=== PATIENT | female | born 1950 | race Caucasian/White ===

== ENCOUNTER 2019-08-06 06:41 | Inpatient (IN) | payer MEDICARE, OTHER ==
[2019-08-03 18:07] LABS: BASOPHILS # (AUTO) 0.1 (0.0-0.1); BASOPHILS % 0.5 % (0.0-1.0); EOSINOPHILS # (AUTO) 0.3 (0.0-0.4); EOSINOPHILS % 2.6 % (0.0-6.0); HEMATOCRIT 38.3 % (34.2-44.1); HEMOGLOBIN 12.6 g/dL (12.0-16.0); LYMPHOCYTES # (AUTO) 2.3 (1.0-3.2); LYMPHOCYTES % 22.4 % (18.0-39.1); MEAN CORPUSCULAR HEMOGLOBIN 27.8 pg (28-32); MEAN CORPUSCULAR HGB CONC 32.9 g/dL (31-35); MEAN CORPUSCULAR VOLUME 84.5 fL (81-99); MONOCYTES # (AUTO) 0.8 (0.2-0.8); MONOCYTES % 7.9 % (4.4-11.3); NEUTROPHILS # (AUTO) 6.7 (2.1-6.9); NEUTROPHILS % 65.7 % (38.7-80.0); PLATELET COUNT 257 x10e3/uL (140-360); RED BLOOD COUNT 4.53 x10e6/uL (3.6-5.1); RED CELL DISTRIBUTION WIDTH 13.9 % (11.7-14.4)
--- NOTE | 2019-08-03 18:40 | Diagnostic Imaging Report ---
EXAMINATION: PA and lateral views of the chest. COMPARISON: None CLINICAL HISTORY: Preop DISCUSSION: Lines/tubes: None. Lungs: The lungs are well inflated and clear. There is no evidence of pneumonia or pulmonary edema. Pleura: There is no pleural effusion or pneumothorax. Heart and mediastinum: Cardiomediastinal silhouette is unremarkable. Pulmonary vasculature is normal. Bones and soft tissues: No acute bony abnormalities. Degenerative changes in the thoracic spine IMPRESSION: No acute cardiopulmonary abnormalities. Signed by: Dr. Fawad Greene M.D. on 08/03/2019 6:37 PM
[~2019-08-06] VITALS: Ht 167.6 cm; Wt 97.5 kg
[~2019-08-06 06:41] MED LIST: ALLOPURINOL PO; ESCITALOPRAM OX20 MG PO; INDOMETHACIN50 MG PO; TIZANIDINE HCL4 MG PO; ULTRAM50 MG PO; ZESTRIL20 MG PO
[2019-08-06] MEDS ORDERED: SUGAMMADEX SODIUM 200 MG/2 ML VIAL IV ONE (07:07)
[2019-08-06] MEDS ORDERED: LIDOCAINE HCL (LTA) 4 ML SOLN ONE (07:07)
[2019-08-06] MEDS ORDERED: SCOPOLAMINE 1.5 MG PATCH ONE (07:08)
[2019-08-06] MEDS ORDERED: CEFAZOLIN SOD 1 GM/NS 50ML 100 ML IV ONE (07:22)
[2019-08-06] MEDS ORDERED: ONDANSETRON HCL INJ 2MG/ML 2ML 2 MG/ML VIAL IV PRN (07:45)
[2019-08-06] MEDS ORDERED: BUPIVACAINE 0.25% 30ML SDV INJ ONE (07:56)
[2019-08-06] MEDS ORDERED: ACETAMINOPHEN 1000 MG/100 ML 100 ML IV ONE (09:04)
[2019-08-06] MEDS ORDERED: DEXMEDETOMIDINE HCL 2 ML ONE (09:23)
--- NOTE | 2019-08-06 09:57 | Operative Report ---
DATE OF PROCEDURE: 08/06/2019 SURGEON: Spike Mike MD PREOPERATIVE DIAGNOSES: 1. Morbid obesity, BMI 35. 2. Hypertension. POSTOPERATIVE DIAGNOSES: 1. Morbid obesity, BMI 35. 2. Hypertension. PREOPERATIVE INDICATION: Treat disease, prevent complications related to comorbid conditions of obesity. PROCEDURE: Laparoscopic vertical sleeve gastrectomy. ANESTHESIA: General. PROTECTIVE CLOTHING ISSUER: Moe Salmon, student assistant (needed due to complexity of case). FLUIDS: 500 mL of crystalloid. ESTIMATED BLOOD LOSS: 20 mL. DRAINS: None. COMPLICATIONS: None. SPECIMENS: Partial stomach. GRAFTS: None. FINDINGS: 1. Normal upper GI anatomy. 2. Negative intraoperative EGD leak test. PROCEDURE IN DETAIL: The patient was brought to the operating room and was intubated under general endotracheal anesthesia. She was sterilely prepped and draped in the usual fashion. A preprocedure pause was performed identifying the patient, use of perioperative antibiotics, intended procedure, and staff surgeon. A left subcostal incision was made and a Veress needle was inserted. Trocar was placed through direct visualization and it was noted that there was into the lumen of the stomach. I then placed an additional 5 mm trocar in the right upper quadrant and was able to pull the trocar out of the stomach. The trocar had pierced the greater curvature of stomach at the site, where the specimen was to be removed. We then mobilized the greater curvature of stomach from about 3 cm proximal to the pyloric valve to the left jorge of the diaphragm using the [place] LigaSure device. I then placed in a 32-Serbian bougie, which was used for suctioning as well along the lesser curvature of the stomach. The greater curvature of the stomach was resected with 5 firings of a 60 mm purple load TRS reinforced stapling device. Once that was complete, an intraoperative leak test was performed, no leaks were identified. The suctioning bougie was then removed. The specimen was removed through the right periumbilical port site. The port site was closed with 0 Vicryl suture using a Gurjit Dunaway technique in a [id number] fashion. We then verified hemostasis, removed the liver retractor and desufflated the abdomen. Incision sites were closed with 4-0 Monocryl suture in a subcuticular fashion. Dermabond dressing was applied. A 0.25% bupivacaine was used both at the preperitoneal incision sites. The patient tolerated the procedure well. Type of wound is type 2, clean, contaminated. MD ARASH Ortiz/MODL /[id number]
--- NOTE | 2019-08-06 10:26 | NUR ---
RECEIVED PATIENT FROM RECOVERY. PATIENT A/O X3, EVEN RESPIRATIONS ON RA. LUNG SOUNDS CLEAR TO AUSCULTATION. 5 TROCAR SITES TO ABDOMEN. LEFT HAND 20 GAUGE IV LR @ 125 CC/HR. ANGELIKA ARMENTA AND SCD'S BILATERALLY. ORIENTED PATIENT TO ROOM AND CALL LIGHT. BED LOW, WHEELS LOCKED, SIDE RAILS X2. CALL LIGHT IN REACH WILL CONTINUE TO MONITOR PATIENT.
[2019-08-06] MEDS ORDERED: SCOPOLAMINE 1.5 MG PATCH TOP SCH (11:00)
[2019-08-06] MEDS: LACTATED RINGER'S 1,000 ML IV SCH ×2 (11:05→23:38)
--- NOTE | 2019-08-06 11:05 | NUR ---
PATIENT COMPLAINT OF CHEST PAIN 05/31. STAT EKG ORDER PLACED PER PROTOCOL. EKG SHOWED NORMAL SINUS RHYTHM.
[2019-08-06] MEDS: MORPHINE SULFATE 2 MG/ML SYR 1ML IV PRN ×4 (11:07→23:44)
--- NOTE | 2019-08-06 11:07 | NUR ---
MORPHINE GIVEN FOR PAIN AT THIS TIME.
--- NOTE | 2019-08-06 11:08 | History and Physical ---
CHIEF COMPLAINT: "I had weight loss surgery." HISTORY OF PRESENT ILLNESS: This is a 69-year-old white woman, who was initially admitted to [facility] [place] with a diagnosis of obesity, BMI 35, complicating underlying hypertension. Today, patient underwent successful laparoscopic sleeve gastrectomy. This performed by Dr. Spike Mike. After the surgery, the patient underwent an intraoperative EGD leak test, which was negative. This EGD did reveal normal upper GI anatomy. The patient tolerated the surgery quite well. At this time, she has some pain. Denies any nausea or vomiting. The Nielsen catheter has been removed. The patient states this is a first bariatric surgery. REVIEW OF SYSTEMS: GENERAL: Weight is stable. No fever or chills. HEENT: No headaches. No visual changes. CARDIOVASCULAR/RESPIRATORY: No chest pain. No short of breath or cough. No history of chronic bronchitis or asthma. GASTROINTESTINAL: Complains of abdominal pain, 8/10, but she states it is tolerable. No nausea or vomiting. GENITOURINARY: Nielsen catheter was removed. Denies any UTI or overactive bladder symptoms. NEUROMUSCULAR: No limb weakness or numbness. PAST MEDICAL HISTORY: 1. Hypertension. 2. Obesity, BMI 35. 3. Depression. 4. Hyperuricemia. 5. History of breast cancer in 2012, which resulted in right lumpectomy and radiation therapy afterwards. FAMILY HISTORY: Noncontributory. SOCIAL HISTORY: This woman is , lives with her . She is employed as a delivery dispatcher. No history of tobacco or alcohol use. ALLERGIES: NO KNOWN DRUG ALLERGIES. MEDICATIONS: 1. Escitalopram 20 mg every night. 2. Indomethacin 50 mg every night. 3. Lisinopril 20 mg every night. 4. Tizanidine 4 mg every night. 5. Tramadol 50 mg every night as needed for pain. 6. Allopurinol 300 mg daily. PAST SURGICAL HISTORY: 1. Laparoscopic sleeve gastrectomy today. 2. Laparoscopic cholecystectomy. 3. Total abdominal hysterectomy with bilateral salpingo-oophorectomy. 4. section twice. 5. Right lumpectomy in 2011 due to breast cancer. PHYSICAL EXAMINATION: GENERAL: She is awake, alert, and fluent, in no distress. Very pleasant and calm. VITAL SIGNS: Blood pressure 90/50, heart rate is 60, respiratory rate 16, temperature 97.7, and oxygen saturation 99% on room air. BMI 35. INTEGUMENT: Skin is warm and dry. No pallor, diaphoresis. HEENT: Anicteric sclerae. Moist mucous membranes. NECK: Supple. CARDIOVASCULAR: Regular rate and rhythm. LUNGS: Clear to auscultation bilaterally. ABDOMEN: Soft. The laparoscopic incisions are clean, dry, and intact. No bowel sounds are auscultated. EXTREMITIES: No edema or deformity. She is wearing sequential compression devices at this time. NEUROLOGIC: Intact. DIAGNOSES: 1. Obesity, BMI 35, complicating underlying hypertension. 2. Hypertensive heart disease. 3. Status post laparoscopic sleeve gastrectomy. 4. History of breast cancer in 2012 in remission. PLAN: 1. Encourage incentive spirometer use every hour to help prevent atelectasis. 2. Mobilize patient. 3. Followup complete blood count and comprehensive metabolic profile for pain control. 4. We will start enoxaparin to prevent deep venous thrombosis and pulmonary thromboembolism. 5. We will hold blood pressure medications today since she is hypotensive and is taking nothing by mouth. I would like to thank, Dr. Mike for allowing me to participate in the care of this patient. MD ORION Boone/JOAQUIN /[id number] MTDD
[2019-08-06 11:16] VITALS: BP 137/94
[2019-08-06 11:27] VITALS: BP 137/94
[2019-08-06 11:46] VITALS: BP 137/94
--- NOTE | 2019-08-06 12:22 | NUR ---
PATIENT HAS VOIDED SINCE SURGERY.
[2019-08-06] MEDS ORDERED: FAMOTIDINE 20 MG/2 ML VIAL IV SCH ×2 (13:30→13:45)
[2019-08-06] MEDS ORDERED: FUROSEMIDE INJ 10 MG/ML 2 ML VIAL IV NR (14:00)
[2019-08-06] MEDS ORDERED: FAMOTIDINE INJ 40 MG in SODIUM CHLORIDE 0.9% 100 ML IV SCH (15:00)
[2019-08-06 15:39] VITALS: BP 168/84
--- NOTE | 2019-08-06 17:01 | NUR ---
RD received consult for bariatric diet education. Pt had a laparoscopic sleeve gastrectomy today. Pt was not interested in verbal education at time of visit and stated she will read handouts at a later time. Encouraged pt to contact RD if she has questions. Signed: Bertha Fernandez RD, DANIELA
--- NOTE | 2019-08-06 17:14 | NUR ---
PATIENT AMBULATING IN HALLWAY, STEADY GAIT. NO SIGNS OF DISTRESS.
--- NOTE | 2019-08-06 19:10 | NUR ---
Patient visited in room during nursing rounds. Patient alert and oriented x3. Some intermittent chest pain being felt by patient but medicated accordingly. Pt ambulatory prn. S/P Bariatric surgery with 5 trocar sites on abdomen (being covered with dermabond). NPO except ice chips at this time. On IVF (LR at 125ml/hr). Call dawn within reach.
[2019-08-06 20:00] VITALS: BP 155/84
[2019-08-06] MEDS: ENOXAPARIN SOD INJ 40 MG/0.4 ML SYR SC SCH (20:39)
[2019-08-07] VITALS: BP 143/82
[2019-08-07 05:58] VITALS: BP 142/76
[2019-08-07] MEDS: MORPHINE SULFATE 2 MG/ML SYR 1ML IV PRN (06:16)
[2019-08-07] MEDS: LACTATED RINGER'S 1,000 ML IV SCH ×2 (06:16→10:50)
[2019-08-07 06:22] LABS: BASOPHILS % 0.1 % (0.0-1.0); HEMATOCRIT 35.2 % (34.2-44.1); HEMOGLOBIN 11.6 g/dL (12.0-16.0); LYMPHOCYTES # (AUTO) 1.8 (1.0-3.2); LYMPHOCYTES % 12.7 % (18.0-39.1); MEAN CORPUSCULAR VOLUME 84.8 fL (81-99); MONOCYTES # (AUTO) 1.1 (0.2-0.8); MONOCYTES % 7.8 % (4.4-11.3); NEUTROPHILS # (AUTO) 10.9 (2.1-6.9); NEUTROPHILS % 78.6 % (38.7-80.0); PLATELET COUNT 220 x10e3/uL (140-360); RED BLOOD COUNT 4.15 x10e6/uL (3.6-5.1); RED CELL DISTRIBUTION WIDTH 13.8 % (11.7-14.4)
[2019-08-07 06:51] LABS: ALBUMIN 3.3 g/dL (3.5-5.0); ALBUMIN/GLOBULIN RATIO 1.1 (0.8-2.0); ANION GAP 14.5 mmol/L (8-16); CALCIUM 9.1 mg/dL (8.4-10.2); CREATININE, SERUM 1.44 mg/dL (0.57-1.11); MAGNESIUM 1.8 MG/DL (1.3-2.1); PHOSPHORUS 3.3 MG/DL (2.3-4.7); POTASSIUM 4.5 mmol/L (3.5-5.1)
[2019-08-07] MEDS ORDERED: HYDROCODONE/APAP 7.5MG-325MG 1 EA TAB PO PRN (07:00)
--- NOTE | 2019-08-07 07:00 | NUR ---
RECEIVED PATIENT ASLEEP IN BED NO S/S OF DISTRESS. BED LOW, WHEELS LOCKED, SIDE RAILS X2. CALL LIGHT IN REACH WILL CONTINUE TO MONITOR PATIENT.
--- NOTE | 2019-08-07 07:52 | NUR ---
Progress Note S: No complaints O: AF, VSS; labs reviewed General- no distress Abdomen- soft, incisions c/d/i A/P: POD 1, s/p Lap sleeve gastrectomy -Clears, ambulate, IS, OOB to chair -Diet instructions given -F/u in 3 weeks with me
[2019-08-07 08:47] VITALS: BP 159/70
[2019-08-07] MEDS: ENOXAPARIN SOD INJ 40 MG/0.4 ML SYR SC SCH (08:58)
[2019-08-07 09:06] VITALS: BP 159/70
--- NOTE | 2019-08-07 09:36 | Discharge Summary ---
ADMIT DIAGNOSES: 1. Obesity, BMI 35, complicating underlying hypertension. 2. Hypertensive heart disease. 3. History of breast cancer in 2012, in remission. DISCHARGE DIAGNOSIS: 1. Status post laparoscopic sleeve gastrectomy. 2. Obesity, BMI 35, complicating underlying hypertension. 3. Hypertensive heart disease. 4. History of breast cancer in 2012, in remission. HOSPITAL COURSE: This is a 69-year-old white woman, who was initially admitted to [facility] with diagnosis of obesity, BMI 35, complicating underlying hypertension. During this hospitalization, the patient underwent successful laparoscopic sleeve gastrectomy. This performed by Dr. Spike Mike. The patient tolerated surgery quite well. On discharge, she was tolerating a clear liquid diet. MEDICATIONS ON DISCHARGE: 1. Escitalopram 20 mg every night. 2. Lisinopril 20 mg daily. 3. Tizanidine 4 mg every night as needed for muscle spasms. 4. Tramadol 50 mg every night as needed for pain. 5. Allopurinol 300 mg daily. 6. Tylenol No. 3 one pill every 4 hours p.r.n. pain, 20 prescribed, no refills. 7. Zofran 8 mg one p.o. b.i.d. p.r.n. nausea, 20 prescribed, no refills. The patient was asked to stop indomethacin. INSTRUCTIONS: The patient was instructed to follow up with her primary care physician within [address] Mike also within 2 weeks. The patient now resolved correctly. MD ORION Boone/JOAQUIN /[id number] cc: Spike Mike MD
[2019-08-07] MEDS ORDERED: ZOFRAN4 MG PO (10:09)
[2019-08-07] MEDS ORDERED: FAMOTIDINE20 MG PO (10:09)
[2019-08-07] MEDS ORDERED: TYLENOL WITH C1 EACH PO (10:12)
[2019-08-07 11:04] LABS: LYMPHOCYTES % (MANUAL) 13 % (19-48); MONOCYTES % (MANUAL) 3 % (3.4-9.0); NEUTROPHILS % (MANUAL) 84 % (40-74)
[2019-08-07 11:12] LABS: PLATELET ESTIMATE ADEQUATE; PLATELET MORPHOLOGY COMMENT NORMAL; RBC MORPHOLOGY COMMENT NORMAL
[2019-08-07 11:55] VITALS: BP 149/68
--- NOTE | 2019-08-07 12:35 | NUR ---
REMOVED PATIENTS IV. CATHETER TIP INTACT AND PRESSURE DRESSING APPLIED.
--- NOTE | 2019-08-07 14:01 | NUR ---
PATIENT DISCHARGED FROM FACILITY. PATIENT GATHERED ALL PERSONAL BELONGINGS, DISCHARGE INSTRUCTIONS AND FOLLOW UP INFORMATION. PATIENT LEFT UNIT IN WHEELCHAIR AND WENT HOME VIA PRIVATE AUTO. NO SIGNS OF DISTRESS LEAVING FACILITY.
--- OUTSIDE RECORDS SUMMARY | 2019-08-10 12:47 | XMS REPORT ---
[facility] Address Unknown Phone Unavailable Care Team Providers Care Medical Technicians Name Role Phone Zhane KING Unavailable Unavailable MANAV JONES Unavailable Unavailable DIEGO MORSE Unavailable Unavailable TAMIKO CARVALHO Unavailable Unavailable Problems This patient has no known problems. Allergies, Adverse Reactions, Alerts This patient has no known allergies or adverse reactions. Medications This patient has no known medications. Results Test Description Test Time Test Comments Text Results Atomic Results Result Comments CHEST 2 VIEWS 2019-08-03 18:36:00 [place] [address] Patient Name: CYNDIE HAYES MR #: [id number] : 1950 Age/Sex: 69/F Req #: [id number] Adm Physician: Ordered by: EILANA KING MD Report #: [id number] Location: OR Room/Bed: Procedure: [id number] DX/CHEST 2 VIEWS Exam Date: 08/03/19 Exam Time: 1720 REPORT STATUS: Signed EXAMINATION: PA and lateral views of the chest. COM PARISON: None CLINICAL HISTORY: Preop DISCUSSION: Lines/tubes: None. Lungs: The lungs are well inflated and clear. There is no evidence of pneumonia or pulmonary edema. Pleura: There is no pleural effusion or pneumothorax. Heart and mediastinum: Cardiomediastinal silhouette is unremarkable. Pulmonary vasculature is normal. Bones and soft tissues: No acute bony abnormalities. Degenerative changes in the thoracic spine IMPRESSION: No acute cardiopulmonary abnormalities. Signed by: Dr. Brendan Camilo M.D. on 08/03/2019 6:37 PM Dictated By: BRENDAN CAMILO MD 36 Transcribed By: RONDA on 08/03/191836 COPY TO: ELIANA KING MD WOUND CULTURE + GRAM STAIN 2018-10-21 08:35:00 CULTURE (BEAKER) (test vzyp=3942) METHICILLIN RESISTANT STAPHYLOCOCCUS AUREUS 3+ Methicillin resistant Staphylococcus aureus Ciprofloxacin (test code=7) Clindamycin (test code=10) Daptomycin (test code=59) Erythromycin (test code=4) Gentamicin (test code=18) Levofloxacin (test code=22) Linezolid (test code=40) Moxifloxacin (test code=36) Nitrofurantoin (test code=23) Oxacillin (test code=14) Rifampin (test code=43) Tetracycline (test code=2) Tigecycline (test jyxz=718) Trimethoprim + Sulfamethoxazole (test code=47) Vancomycin (test code=13) GRAM STAIN RESULT (BEAKER) (test nibv=1952) No White blood cells seen GRAM STAIN RESULT (BEAKER) (test ecuj=145376) <1+ gram positive cocci in clusters RAPID INFLUENZA A&B [id number] 21:50:00* Test Item Value Reference Range Comments RAPID INFLUENZA A AG (BEAKER) (test qjng=9834) Negative Negative, Inconclusive RAPID INFLUENZA B AG (BEAKER) (test wmzd=2650) Negative Negative, Inconclusive RAD, CHEST, 2 [id number] 20:35:00Reason for exam:->COUGHReason for exam:-> ABSCESSReason for exam:->FEVERFINAL REPORT EXAMINATION: 2 view chest CLINICAL INDICATION: Cough. Fever IMPRESSION: Compared with 12/11/2017. Lung volumes have improved in the interval. No evidence of new focal lung consolidation, pulmonary edema or pleural effusion. Heart size is at the upper limit of normal. Mediastinal contours are sharp. No evidence of an acute osseous abnormality or pneumothorax. Signed: Lady Loew Verified Date/Time: 10/16/2018 20:35:46 Reading Location: [address] Reading Room , FOOT, MIN 3 VIEWS, [id number] 19:31:00Reason for exam:-> painconcern she stepped on and has a forgein objectFINAL REPORT RAD, FOOT, MIN 3 VIEWS, RIGHT CLINICAL INDICATION: pain COMPARISON: August 15, 2016 FINDINGS: Frontal, oblique and lateral views of the right foot. IMPRESSION:No fracture is identified. Degenerative articular changes in the midfoot has slightly progressed since the prior examination. No soft tissue lesion or emphysema is present. There is no malalignment. Surgical construct in the distal tibia and fibula are intact without evidence for fracture or failure. Surrounding soft tissues are unremarkable. Signed: JR Cordero Robert MDReport Verified Date/Time: 10/09/2018 19:31:31 Reading Location: [facility] Radiology Reading Room D [id number] 07:00:00* Test Item Value Reference Range Comments CULTURE (BEAKER) (test ppqc=7112) No growth in 5 days HEPATIC FUNCTION [id number] 05:26:00* Test Item Value Reference Range Comments TOTAL PROTEIN (BEAKER) (test tivl=669) 5.8 gm/dL 6.0-8.5 ALBUMIN (BEAKER) (test bsqv=9133) 3.1 g/dL 3.5-5.0 BILIRUBIN TOTAL (BEAKER) (test jjdu=622) 1.3 mg/dL 0.1-1.2 BILIRUBIN DIRECT (BEAKER) (test quxb=120) 0.6 mg/dL 0.0-0.4 ALKALINE PHOSPHATASE (BEAKER) (test ucfw=111) 111 U/L 30-115 AST (SGOT) (BEAKER) (test regz=370) 35 U/L 5-40 ALT (SGPT) (BEAKER) (test djvx=548) 99 U/L 5-50 COMPREHENSIVE METABOLIC [id number] 05:26:00* Test Item Value Reference Range Comments TOTAL PROTEIN (BEAKER) (test yhza=288) 5.8 gm/dL 6.0-8.5 ALBUMIN (BEAKER) (test zxli=7154) 3.1 g/dL 3.5-5.0 ALKALINE PHOSPHATASE (BEAKER) (test zxsm=731) 111 U/L 30-115 BILIRUBIN TOTAL (BEAKER) (test lwxl=962) 1.3 mg/dL 0.1-1.2 SODIUM (BEAKER) (test gvck=385) 141 meq/L 135-148 POTASSIUM (BEAKER) (test xjfp=474) 4.7 meq/L 3.6-5.5 CHLORIDE (BEAKER) (test btjl=942) 106 meq/L 98-106 CO2 (BEAKER) (test fxaa=885) 27 meq/L 20-29 BLOOD UREA NITROGEN (BEAKER) (test hrvx=590) 18 mg/dL 10-26 CREATININE (BEAKER) (test mcvj=401) 1.00 mg/dL 0.50-1.20 GLUCOSE RANDOM (BEAKER) (test komo=223) 106 mg/dL 70-110 CALCIUM (BEAKER) (test wjkp=398) 9.1 mg/dL 8.5-10.5 AST (SGOT) (BEAKER) (test ooud=319) 35 U/L 5-40 ALT (SGPT) (BEAKER) (test zbjm=060) 99 U/L 5-50 EGFR (BEAKER) (test xydu=6545) 55 mL/min/1.73 sq m ESTIMATED GFR IS NOT ACCURATE CREATININE CLEARANCE IN PREDICTING GLOMERULAR FILTRATION RATE. ESTIMATED GFR IS NOT APPLICABLE FOR DIALYSIS PATIENTS. [id number] 05:23:00* Test Item Value Reference Range Comments PHOSPHORUS (BEAKER) (test zbly=166) 3.6 mg/dL 2.5-4.5 [id number] 05:17:00* Test Item Value Reference Range Comments MAGNESIUM (BEAKER) (test iwtt=113) 1.9 mg/dL 1.5-3.0 CBC W/PLT COUNT & AUTO [id number] 04:45:00* Test Item Value Reference Range Comments WHITE BLOOD CELL COUNT (BEAKER) (test kdzo=888) 7.9 K/ L 4.0-10.0 RED BLOOD CELL COUNT (BEAKER) (test ctfj=485) 4.19 M/ L 4.00-5.00 HEMOGLOBIN (BEAKER) (test ejiz=621) 11.8 GM/DL 12.0-15.0 HEMATOCRIT (BEAKER) (test pvzz=903) 35.3 % 36.0-45.0 MEAN CORPUSCULAR VOLUME (BEAKER) (test hdpk=293) 84.2 fL 82.0-99.0 MEAN CORPUSCULAR HEMOGLOBIN (BEAKER) (test cajj=973) 28.1 pg 27.0-33.0 MEAN CORPUSCULAR HEMOGLOBIN CONC (BEAKER) (test spsv=544) 33.4 GM/DL 32.0-36.0 RED CELL DISTRIBUTION WIDTH (BEAKER) (test fhkf=634) 14.6 % 10.3-14.2 PLATELET COUNT (BEAKER) (test bsgh=962) 206 K/CU MM 150-430 MEAN PLATELET VOLUME (BEAKER) (test pjgr=281) 7.4 fL 6.5-10.5 NUCLEATED RED BLOOD CELLS (BEAKER) (test usqx=310) 0 /100 WBC 0-0 NEUTROPHILS RELATIVE PERCENT (BEAKER) (test tmdn=600) 66 % LYMPHOCYTES RELATIVE PERCENT (BEAKER) (test kfod=254) 20 % MONOCYTES RELATIVE PERCENT (BEAKER) (test ocst=512) 10 % EOSINOPHILS RELATIVE PERCENT (BEAKER) (test eair=015) 4 % BASOPHILS RELATIVE PERCENT (BEAKER) (test yyzu=148) 0 % NEUTROPHILS ABSOLUTE COUNT (BEAKER) (test daxb=199) 5.30 K/ L 1.80-8.00 LYMPHOCYTES ABSOLUTE COUNT (BEAKER) (test grbk=791) 1.60 K/ L 1.48-4.50 MONOCYTES ABSOLUTE COUNT (BEAKER) (test dmxv=900) 0.80 K/ L 0.00-1.30 EOSINOPHILS ABSOLUTE COUNT (BEAKER) (test gtkd=072) 0.30 K/ L 0.00-0.50 BASOPHILS ABSOLUTE COUNT (BEAKER) (test hoyz=411) 0.00 K/ L 0.00-0.20 TISSUE [id number] 09:38:00Surgical Pathology Report Case: [id number] Authorizing Provider: Oswaldo Tavares MD Collected: 12/12/2017 1646 Ordering Location: [facility] PERI[facility] Received: 12/13/2017 1127 SERVICES Pathologist: Carine Carvalho MD Specimen: Gallbladder GALLBLADDER, CHOLECYSTECTOMY- CHRONIC CHOLECYSTITIS- CHOLELITHIASIS- ONE BENIGN LYMPH NODE (0/1)- NEGATIVE CYSTIC DUCT MARGIN Signing Pathologist Direct Phone Line: [phone] signed by Carine Carvalho MD on 12/14/2017 at 9:38 [id number] pain, nauseaGallbladderThe specimen is received in formalin labeled with the patient's name, medical record number and "gallbladder" and consists of a gallbladder (7 x 3 x 0.8 cm). Also received separately is a jones- yellow stone measuring 2.5 cm in greatest dimension. The outer surface of the gallbladder is jones-pink, smooth and glistening with focal areas of hemorrhage. The gallbladder mucosa is red-pink and velvety. No nodules, masses or other lesions are present. Retanner sections of gallbladder wall, cystic duct and possible lymph node are submitted in cassette A. AL/bcPerformed.HEPATIC FUNCTION [id number] 05:06:00* Test Item Value Reference Range Comments TOTAL PROTEIN (BEAKER) (test otzj=864) 6.4 gm/dL 6.0-8.5 ALBUMIN (BEAKER) (test lwlm=8221) 3.4 g/dL 3.5-5.0 BILIRUBIN TOTAL (BEAKER) (test qfcy=091) 2.0 mg/dL 0.1-1.2 BILIRUBIN DIRECT (BEAKER) (test lzug=940) 1.0 mg/dL 0.0-0.4 ALKALINE PHOSPHATASE (BEAKER) (test sxql=263) 130 U/L 30-115 AST (SGOT) (BEAKER) (test vwst=777) 75 U/L 5-40 ALT (SGPT) (BEAKER) (test adya=365) 157 U/L 5-50 BASIC METABOLIC [id number] 04:44:00* Test Item Value Reference Range Comments SODIUM (BEAKER) (test afmo=688) 136 meq/L 135-148 POTASSIUM (BEAKER) (test nsla=445) 4.5 meq/L 3.6-5.5 CHLORIDE (BEAKER) (test tyjc=008) 106 meq/L 98-106 CO2 (BEAKER) (test fnfx=014) 24 meq/L 20-29 BLOOD UREA NITROGEN (BEAKER) (test uskc=547) 17 mg/dL 10-26 CREATININE (BEAKER) (test dryp=662) 1.00 mg/dL 0.50-1.20 GLUCOSE RANDOM (BEAKER) (test zfuo=905) 98 mg/dL 70-110 CALCIUM (BEAKER) (test zldq=200) 9.2 mg/dL 8.5-10.5 EGFR (BEAKER) (test ehzk=4677) 55 mL/min/1.73 sq m ESTIMATED GFR IS NOT ACCURATE CREATININE CLEARANCE IN PREDICTING GLOMERULAR FILTRATION RATE. ESTIMATED GFR IS NOT APPLICABLE FOR DIALYSIS PATIENTS. [id number] 04:43:00* Test Item Value Reference Range Comments PHOSPHORUS (BEAKER) (test hvoo=937) 2.0 mg/dL 2.5-4.5 [id number] 04:37:00* Test Item Value Reference Range Comments MAGNESIUM (BEAKER) (test gykv=767) 1.7 mg/dL 1.5-3.0 CBC (HEMOGRAM ONLY)2017-12-14 04:30:00* Test Item Value Reference Range Comments WHITE BLOOD CELL COUNT (BEAKER) (test hxuk=224) 8.9 K/ L 4.0-10.0 RED BLOOD CELL COUNT (BEAKER) (test plzs=725) 4.20 M/ L 4.00-5.00 HEMOGLOBIN (BEAKER) (test fsfw=001) 11.9 GM/DL 12.0-15.0 HEMATOCRIT (BEAKER) (test shbt=035) 35.1 % 36.0-45.0 MEAN CORPUSCULAR VOLUME (BEAKER) (test hslx=221) 83.4 fL 82.0-99.0 MEAN CORPUSCULAR HEMOGLOBIN (BEAKER) (test vmto=930) 28.3 pg 27.0-33.0 MEAN CORPUSCULAR HEMOGLOBIN CONC (BEAKER) (test sowq=262) 33.9 GM/DL 32.0-36.0 RED CELL DISTRIBUTION WIDTH (BEAKER) (test ncpg=453) 14.8 % 10.3-14.2 PLATELET COUNT (BEAKER) (test xsmm=361) 192 K/CU MM 150-430 MEAN PLATELET VOLUME (BEAKER) (test aaim=612) 8.1 fL 6.5-10.5 NUCLEATED RED BLOOD CELLS (BEAKER) (test pfdc=774) 0 /100 WBC 0-0 HEPATIC FUNCTION [id number] 06:50:00* Test Item Value Reference Range Comments TOTAL PROTEIN (BEAKER) (test ndfr=931) 6.3 gm/dL 6.0-8.5 ALBUMIN (BEAKER) (test ixux=6844) 3.3 g/dL 3.5-5.0 BILIRUBIN TOTAL (BEAKER) (test ennp=926) 3.7 mg/dL 0.1-1.2 BILIRUBIN DIRECT (BEAKER) (test oxgt=197) 2.4 mg/dL 0.0-0.4 ALKALINE PHOSPHATASE (BEAKER) (test kdgd=927) 131 U/L 30-115 AST (SGOT) (BEAKER) (test bvbw=603) 170 U/L 5-40 ALT (SGPT) (BEAKER) (test ajkh=895) 254 U/L 5-50 Specimen slightly ictericBASIC METABOLIC [id number] 06:46:00* Test Item Value Reference Range Comments SODIUM (BEAKER) (test mxib=113) 138 meq/L 135-148 POTASSIUM (BEAKER) (test daqk=314) 4.4 meq/L 3.6-5.5 CHLORIDE (BEAKER) (test jyle=155) 107 meq/L 98-106 CO2 (BEAKER) (test zdri=179) 23 meq/L 20-29 BLOOD UREA NITROGEN (BEAKER) (test wmwp=146) 19 mg/dL 10-26 CREATININE (BEAKER) (test kdhv=101) 1.20 mg/dL 0.50-1.20 GLUCOSE RANDOM (BEAKER) (test afss=793) 137 mg/dL 70-110 CALCIUM (BEAKER) (test pijo=086) 8.9 mg/dL 8.5-10.5 EGFR (BEAKER) (test ijdn=1539) 45 mL/min/1.73 sq m ESTIMATED GFR IS NOT ACCURATE CREATININE CLEARANCE IN PREDICTING GLOMERULAR FILTRATION RATE. ESTIMATED GFR IS NOT APPLICABLE FOR DIALYSIS PATIENTS. Specimen slightly [id number] 06:45:00* Test Item Value Reference Range Comments PHOSPHORUS (BEAKER) (test dlce=632) 2.8 mg/dL 2.5-4.5 [id number] 06:39:00* Test Item Value Reference Range Comments MAGNESIUM (BEAKER) (test euho=335) 1.7 mg/dL 1.5-3.0 CBC (HEMOGRAM ONLY)2017-12-13 06:32:00* Test Item Value Reference Range Comments WHITE BLOOD CELL COUNT (BEAKER) (test ealh=022) 10.9 K/ L 4.0-10.0 RED BLOOD CELL COUNT (BEAKER) (test cnua=446) 4.15 M/ L 4.00-5.00 HEMOGLOBIN (BEAKER) (test kfxs=113) 11.9 GM/DL 12.0-15.0 HEMATOCRIT (BEAKER) (test aofn=092) 35.2 % 36.0-45.0 MEAN CORPUSCULAR VOLUME (BEAKER) (test vuru=923) 84.8 fL 82.0-99.0 MEAN CORPUSCULAR HEMOGLOBIN (BEAKER) (test xntq=944) 28.7 pg 27.0-33.0 MEAN CORPUSCULAR HEMOGLOBIN CONC (BEAKER) (test vkyc=357) 33.9 GM/DL 32.0-36.0 RED CELL DISTRIBUTION WIDTH (BEAKER) (test rmad=978) 15.2 % 10.3-14.2 PLATELET COUNT (BEAKER) (test qhek=579) 177 K/CU MM 150-430 MEAN PLATELET VOLUME (BEAKER) (test zvck=317) 7.8 fL 6.5-10.5 NUCLEATED RED BLOOD CELLS (BEAKER) (test uasq=786) 0 /100 WBC 0-0 BASIC METABOLIC [id number] 13:04:00* Test Item Value Reference Range Comments SODIUM (BEAKER) (test hkna=589) 140 meq/L 135-148 POTASSIUM (BEAKER) (test zami=966) 4.3 meq/L 3.6-5.5 CHLORIDE (BEAKER) (test sbpy=735) 107 meq/L 98-106 CO2 (BEAKER) (test etrh=608) 24 meq/L 20-29 BLOOD UREA NITROGEN (BEAKER) (test utir=083) 25 mg/dL 10-26 CREATININE (BEAKER) (test gkzw=502) 1.30 mg/dL 0.50-1.20 GLUCOSE RANDOM (BEAKER) (test dkan=141) 112 mg/dL 70-110 CALCIUM (BEAKER) (test xiwo=502) 9.2 mg/dL 8.5-10.5 EGFR (BEAKER) (test rnos=7775) 41 mL/min/1.73 sq m ESTIMATED GFR IS NOT ACCURATE CREATININE CLEARANCE IN PREDICTING GLOMERULAR FILTRATION RATE. ESTIMATED GFR IS NOT APPLICABLE FOR DIALYSIS PATIENTS. Specimen slightly [id number] 12:58:00* Test Item Value Reference Range Comments MAGNESIUM (BEAKER) (test hore=313) 1.9 mg/dL 1.5-3.0 TROPONIN [id number] 12:28:00* Test Item Value Reference Range Comments TROPONIN I (BEAKER) (test bzar=513) < ng/mL 0.00-0.15 Troponin I (TnI) levels must be interpreted in the context of the presenting sym ptoms and the clinical findings. Elevated TnI levels indicate myocardial damage, but are not specific for ischemic heart disease. Elevated TnI levels are seen in patients with other cardiac conditions (including myocarditis and congestive h eart failure), and slight TnI elevations occur in patients with other conditions , including sepsis, renal failure, acidosis, acute neurological disease, and per sistent tachyarrhythmia.COMPREHENSIVE METABOLIC [id number] 05:27:00* Test Item Value Reference Range Comments TOTAL PROTEIN (BEAKER) (test hdcw=251) 6.7 gm/dL 6.0-8.5 Specimen slightly hemolyzed ALBUMIN (BEAKER) (test cewq=7994) 3.6 g/dL 3.5-5.0 Specimen slightly hemolyzed ALKALINE PHOSPHATASE (BEAKER) (test bzfk=996) 164 U/L 30-115 BILIRUBIN TOTAL (BEAKER) (test lzlr=124) 2.3 mg/dL 0.1-1.2 Specimen slightly hemolyzed SODIUM (BEAKER) (test hzyd=421) 143 meq/L 135-148 POTASSIUM (BEAKER) (test vbni=561) 4.7 meq/L 3.6-5.5 Specimen slightly hemolyzed CHLORIDE (BEAKER) (test yaee=102) 106 meq/L 98-106 CO2 (BEAKER) (test ghzq=368) 27 meq/L 20-29 BLOOD UREA NITROGEN (BEAKER) (test xryc=247) 33 mg/dL 10-26 CREATININE (BEAKER) (test wwat=325) 1.40 mg/dL 0.50-1.20 Specimen slightly hemolyzed GLUCOSE RANDOM (BEAKER) (test ekvo=452) 122 mg/dL 70-110 CALCIUM (BEAKER) (test duoa=299) 9.1 mg/dL 8.5-10.5 AST (SGOT) (BEAKER) (test fgln=901) 524 U/L 5-40 Specimen slightly hemolyzed ALT (SGPT) (BEAKER) (test wynh=052) 408 U/L 5-50 Specimen slightly hemolyzed EGFR (BEAKER) (test yzwm=6960) 38 mL/min/1.73 sq m ESTIMATED GFR IS NOT ACCURATE CREATININE CLEARANCE IN PREDICTING GLOMERULAR FILTRATION RATE. ESTIMATED GFR IS NOT APPLICABLE FOR DIALYSIS PATIENTS. TSH/FREE T4 IF [id number] 05:24:00* Test Item Value Reference Range Comments THYROID STIMULATING HORMONE (BEAKER) (test vnjg=940) 1.17 uIU/mL 0.35-5.50 TROPONIN [id number] 05:10:00* Test Item Value Reference Range Comments TROPONIN I (BEAKER) (test bzcl=269) < ng/mL 0.00-0.15 Troponin I (TnI) levels must be interpreted in the context of the presenting sym ptoms and the clinical findings. Elevated TnI levels indicate myocardial damage, but are not specific for ischemic heart disease. Elevated TnI levels are seen in patients with other cardiac conditions (including myocarditis and congestive h eart failure), and slight TnI elevations occur in patients with other conditions , including sepsis, renal failure, acidosis, acute neurological disease, and per sistent tachyarrhythmia.HEMOGLOBIN [id number] 05:00:00* Test Item Value Reference Range Comments HEMOGLOBIN A1C (BEAKER) (test cpht=297) 5.2 % 4.3-6.1 CBC W/PLT COUNT & AUTO [id number] 04:26:00* Test Item Value Reference Range Comments WHITE BLOOD CELL COUNT (BEAKER) (test pjxc=631) 8.4 K/ L 4.0-10.0 RED BLOOD CELL COUNT (BEAKER) (test njxb=526) 4.43 M/ L 4.00-5.00 HEMOGLOBIN (BEAKER) (test expk=406) 12.5 GM/DL 12.0-15.0 HEMATOCRIT (BEAKER) (test qity=659) 36.9 % 36.0-45.0 MEAN CORPUSCULAR VOLUME (BEAKER) (test whqn=453) 83.3 fL 82.0-99.0 MEAN CORPUSCULAR HEMOGLOBIN (BEAKER) (test satl=347) 28.3 pg 27.0-33.0 MEAN CORPUSCULAR HEMOGLOBIN CONC (BEAKER) (test xfur=200) 33.9 GM/DL 32.0-36.0 RED CELL DISTRIBUTION WIDTH (BEAKER) (test gqfo=507) 14.9 % 10.3-14.2 PLATELET COUNT (BEAKER) (test xydz=278) 211 K/CU MM 150-430 MEAN PLATELET VOLUME (BEAKER) (test opgf=249) 7.7 fL 6.5-10.5 NUCLEATED RED BLOOD CELLS (BEAKER) (test lfie=320) 0 /100 WBC 0-0 NEUTROPHILS RELATIVE PERCENT (BEAKER) (test xpes=145) 81 % LYMPHOCYTES RELATIVE PERCENT (BEAKER) (test idmd=039) 12 % MONOCYTES RELATIVE PERCENT (BEAKER) (test fqgw=351) 6 % EOSINOPHILS RELATIVE PERCENT (BEAKER) (test wojz=714) 1 % BASOPHILS RELATIVE PERCENT (BEAKER) (test tmok=912) 0 % NEUTROPHILS ABSOLUTE COUNT (BEAKER) (test ywgo=586) 6.90 K/ L 1.80-8.00 LYMPHOCYTES ABSOLUTE COUNT (BEAKER) (test nyzl=958) 1.00 K/ L 1.48-4.50 MONOCYTES ABSOLUTE COUNT (BEAKER) (test rbmh=176) 0.50 K/ L 0.00-1.30 EOSINOPHILS ABSOLUTE COUNT (BEAKER) (test anha=659) 0.10 K/ L 0.00-0.50 BASOPHILS ABSOLUTE COUNT (BEAKER) (test knzz=309) 0.00 K/ L 0.00-0.20 LACTIC ACID, VENOUS, WHOLE [id number] 21:21:00* Test Item Value Reference Range Comments LACTATE BLOOD VENOUS (2) (BEAKER) (test suiq=9007) 1.3 mmol/L 0.5-2.2 Specimen slightly hemolyzed Effective 12/24/2015: Units/Reference Range ChangeNew: 0.5-2.2 mmol/L Previous: 5 -18 mg/dLU/S, ABDOMINAL, [id number] 20:50:00Abdomen limited area? Add comment if clarification is needed.->Right upper quadrantReason for exam:->RUQ, epigastric painFINAL REPORT History: Right upper quadrant/epigastric pain Abdominal ultrasound dated 12/11/2017 Comparison: None Comment: Real-time transabdominal ultrasound of the right upper quadrant abdomen was performed. Liver: 16.4 cm cm , normal. Normal echogenicity. No focal lesions. Gallbladder: Cholelithiasis. No gallbladder wall thickening. No perocholecystic fluid.. No sonographic Reyna's sign. The transverse diameter of the gallbladder lumen is 3.5 cm. Biliary tree: No intrahepatic ductal dilatation. CBD: 3 mm. MPV: 8 mm Pancreas: Unremarkable. Right kidney: 11.1 x 4.7 x 4.5 cm. Normal echogenicity. No ascites is present in the abdomen. The visualized abdominal aorta is normal in caliber. The IVC and Hepatic veins are patent. Impression: Cholelithiasis. Signed: Mar Roberson Verified Date/Time: 12/11/2017 20:50:16 Reading Location: [address] Reading Room ONIN [id number] 20:10:00* Test Item Value Reference Range Comments TROPONIN I (BEAKER) (test dotm=629) < ng/mL 0.00-0.15 Troponin I (TnI) levels must be interpreted in the context of the presenting sym ptoms and the clinical findings. Elevated TnI levels indicate myocardial damage, but are not specific for ischemic heart disease. Elevated TnI levels are seen in patients with other cardiac conditions (including myocarditis and congestive h eart failure), and slight TnI elevations occur in patients with other conditions , including sepsis, renal failure, acidosis, acute neurological disease, and per sistent tachyarrhythmia.B-TYPE NATRIURETIC FACTOR (BNP)2017-12-11 20:09:00* Test Item Value Reference Range Comments B-TYPE NATRIURETIC PEPTIDE (BEAKER) (test xsvu=153) 34 pg/mL 0-100 COMPREHENSIVE METABOLIC [id number] 20:03:00* Test Item Value Reference Range Comments TOTAL PROTEIN (BEAKER) (test egle=377) 7.2 gm/dL 6.0-8.5 Specimen slightly hemolyzed ALBUMIN (BEAKER) (test kymz=1131) 3.9 g/dL 3.5-5.0 Specimen slightly hemolyzed ALKALINE PHOSPHATASE (BEAKER) (test atua=531) 106 U/L 30-115 BILIRUBIN TOTAL (BEAKER) (test xino=867) 1.3 mg/dL 0.1-1.2 Specimen slightly hemolyzed SODIUM (BEAKER) (test mcpl=559) 141 meq/L 135-148 POTASSIUM (BEAKER) (test bxvp=858) 4.8 meq/L 3.6-5.5 Specimen slightly hemolyzed CHLORIDE (BEAKER) (test zuhc=404) 105 meq/L 98-106 CO2 (BEAKER) (test agku=638) 25 meq/L 20-29 BLOOD UREA NITROGEN (BEAKER) (test iqrr=550) 38 mg/dL 10-26 CREATININE (BEAKER) (test fzsk=665) 1.60 mg/dL 0.50-1.20 Specimen slightly hemolyzed GLUCOSE RANDOM (BEAKER) (test jfxo=650) 118 mg/dL 70-110 CALCIUM (BEAKER) (test sqlf=327) 10.0 mg/dL 8.5-10.5 AST (SGOT) (BEAKER) (test exdo=813) 89 U/L 5-40 Specimen slightly hemolyzed ALT (SGPT) (BEAKER) (test blxu=458) 43 U/L 5-50 Specimen slightly hemolyzed EGFR (BEAKER) (test dyma=0805) 32 mL/min/1.73 sq m ESTIMATED GFR IS NOT ACCURATE CREATININE CLEARANCE IN PREDICTING GLOMERULAR FILTRATION RATE. ESTIMATED GFR IS NOT APPLICABLE FOR DIALYSIS PATIENTS. [id number] 20:03:00* Test Item Value Reference Range Comments LIPASE (BEAKER) (test corm=965) 23 U/L 6-51 [id number] 19:54:00* Test Item Value Reference Range Comments MAGNESIUM (BEAKER) (test bvyt=364) 2.2 mg/dL 1.5-3.0 Specimen slightly hemolyzed RAD, CHEST, 1 VIEW, NON [id number] 19:53:00Reason for exam:->chest painShould this be performed at the bedside?->YesFINAL REPORT History: Chest pain. Comparison: 05/29/2002 Findings: A single view of the chest is submitted. The cardiomediastinal contours are unremarkable. The lung volumes are low. Patchy infrahilar opacities may reflect atelectasis but pneumonitis should be excluded clinically. There is no pneumothorax, large pleural effusion, evidence of overt pulmonary edema or acute bony abnormality. Signed: Mar Roberson MDReport Verified Date/Time: 12/11/2017 19:53:30 Reading Location: [address] Reading Room W/PLT COUNT & AUTO DIFFERENTIAL 2017-12-11 19:38:00* Test Item Value Reference Range Comments WHITE BLOOD CELL COUNT (BEAKER) (test xapu=763) 10.3 K/ L 4.0-10.0 RED BLOOD CELL COUNT (BEAKER) (test ucib=983) 4.89 M/ L 4.00-5.00 HEMOGLOBIN (BEAKER) (test mmzq=992) 13.7 GM/DL 12.0-15.0 HEMATOCRIT (BEAKER) (test aimz=249) 40.9 % 36.0-45.0 MEAN CORPUSCULAR VOLUME (BEAKER) (test cmgx=857) 83.7 fL 82.0-99.0 MEAN CORPUSCULAR HEMOGLOBIN (BEAKER) (test okod=682) 27.9 pg 27.0-33.0 MEAN CORPUSCULAR HEMOGLOBIN CONC (BEAKER) (test vbwu=502) 33.4 GM/DL 32.0-36.0 RED CELL DISTRIBUTION WIDTH (BEAKER) (test zjlm=053) 14.6 % 10.3-14.2 PLATELET COUNT (BEAKER) (test zjsz=017) 238 K/CU MM 150-430 MEAN PLATELET VOLUME (BEAKER) (test yjps=946) 7.7 fL 6.5-10.5 NUCLEATED RED BLOOD CELLS (BEAKER) (test rumf=196) 0 /100 WBC 0-0 NEUTROPHILS RELATIVE PERCENT (BEAKER) (test owqd=338) 73 % LYMPHOCYTES RELATIVE PERCENT (BEAKER) (test lkyq=706) 17 % MONOCYTES RELATIVE PERCENT (BEAKER) (test qxco=380) 8 % EOSINOPHILS RELATIVE PERCENT (BEAKER) (test yfun=913) 1 % BASOPHILS RELATIVE PERCENT (BEAKER) (test ppix=035) 0 % NEUTROPHILS ABSOLUTE COUNT (BEAKER) (test aavu=364) 7.50 K/ L 1.80-8.00 LYMPHOCYTES ABSOLUTE COUNT (BEAKER) (test zhyb=392) 1.70 K/ L 1.48-4.50 MONOCYTES ABSOLUTE COUNT (BEAKER) (test venn=211) 0.90 K/ L 0.00-1.30 EOSINOPHILS ABSOLUTE COUNT (BEAKER) (test ulqi=773) 0.10 K/ L 0.00-0.50 BASOPHILS ABSOLUTE COUNT (BEAKER) (test odnx=251) 0.00 K/ L 0.00-0.20 URIC [id number] 17:26:00* Test Item Value Reference Range Comments URIC ACID (BEAKER) (test qklz=405) 6.0 mg/dL 2.5-8.0 BASIC METABOLIC [id number] 17:26:00* Test Item Value Reference Range Comments SODIUM (BEAKER) (test szig=414) 139 meq/L 135-148 POTASSIUM (BEAKER) (test sqhb=741) 4.7 meq/L 3.6-5.5 CHLORIDE (BEAKER) (test ruqp=403) 101 meq/L 98-106 CO2 (BEAKER) (test pgbf=809) 29 meq/L 20-29 BLOOD UREA NITROGEN (BEAKER) (test pwdm=102) 35 mg/dL 10-26 CREATININE (BEAKER) (test adoj=059) 1.80 mg/dL 0.50-1.20 GLUCOSE RANDOM (BEAKER) (test jkcd=248) 106 mg/dL 70-110 CALCIUM (BEAKER) (test ekli=359) 9.6 mg/dL 8.5-10.5 EGFR (BEAKER) (test saag=4717) 28 mL/min/1.73 sq m ESTIMATED GFR IS NOT ACCURATE CREATININE CLEARANCE IN PREDICTING GLOMERULAR FILTRATION RATE. ESTIMATED GFR IS NOT APPLICABLE FOR DIALYSIS PATIENTS. CBC W/PLT COUNT & AUTO [id number] 17:06:00* Test Item Value Reference Range Comments WHITE BLOOD CELL COUNT (BEAKER) (test lkjw=076) 9.4 K/ L 4.0-10.0 RED BLOOD CELL COUNT (BEAKER) (test zqlr=705) 5.16 M/ L 4.00-5.00 HEMOGLOBIN (BEAKER) (test vpdu=964) 14.3 GM/DL 12.0-15.0 HEMATOCRIT (BEAKER) (test zepy=608) 42.8 % 36.0-45.0 MEAN CORPUSCULAR VOLUME (BEAKER) (test fixu=537) 83.0 fL 82.0-99.0 MEAN CORPUSCULAR HEMOGLOBIN (BEAKER) (test cqdw=296) 27.8 pg 27.0-33.0 MEAN CORPUSCULAR HEMOGLOBIN CONC (BEAKER) (test nyzx=897) 33.5 GM/DL 32.0-36.0 RED CELL DISTRIBUTION WIDTH (BEAKER) (test djqu=521) 14.5 % 10.3-14.2 PLATELET COUNT (BEAKER) (test cohi=581) 240 K/CU MM 150-430 MEAN PLATELET VOLUME (BEAKER) (test lxqm=908) 7.3 fL 6.5-10.5 NUCLEATED RED BLOOD CELLS (BEAKER) (test kcag=209) 0 /100 WBC 0-0 NEUTROPHILS RELATIVE PERCENT (BEAKER) (test ncqb=183) 70 % LYMPHOCYTES RELATIVE PERCENT (BEAKER) (test vhgj=036) 18 % MONOCYTES RELATIVE PERCENT (BEAKER) (test mwcp=778) 10 % EOSINOPHILS RELATIVE PERCENT (BEAKER) (test yfqi=279) 3 % BASOPHILS RELATIVE PERCENT (BEAKER) (test xpcc=211) 0 % NEUTROPHILS ABSOLUTE COUNT (BEAKER) (test azys=914) 6.50 K/ L 1.80-8.00 LYMPHOCYTES ABSOLUTE COUNT (BEAKER) (test gpub=076) 1.70 K/ L 1.48-4.50 MONOCYTES ABSOLUTE COUNT (BEAKER) (test bdwk=717) 0.90 K/ L 0.00-1.30 EOSINOPHILS ABSOLUTE COUNT (BEAKER) (test nwlx=466) 0.30 K/ L 0.00-0.50 BASOPHILS ABSOLUTE COUNT (BEAKER) (test jofp=893) 0.00 K/ L 0.00-0.20 RAD, FOOT, MIN 3 VIEWS, [id number] 16:28:00Reason for exam:->FOOT INJURY FINAL REPORT Foot, left, three views INDICATION: Foot inj ury COMPARISON: Left foot series 03/17/2017 IMPRESSION: There is a chronic distal fifth metatarsal fracture. 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 No acute fracture or dislocation is seen. A small posterior calcaneal spur i s present. The bones appear osteopenic. There is possible mild soft tissue swell ing. Signed: Madina Leon [facility] Verified Date/Time: 11/16/2017 16:28 :54 Reading Location: [facility] B1 [id number] Consult Reading Room
== END 2019-08-07 14:01 | disposition home or self-care (01) | DRG 621 ==
LOC: OR 06:41 → EDSEX 07:30 → PACU V 09:46 → MED/SURG 10:28
PROVIDERS: ADMIT Internal Medicine; ATTEND Internal Medicine
PROC: 0DB64Z3 Excision of Stomach, Percutaneous Endoscopic Approach, Vertical (ICD-10-PCS; principal; 2019-08-06 09:00)
DX: E66.01 Morbid (severe) obesity due to excess calories (principal); Z68.35 Body mass index [BMI] 35.0-35.9, adult; I11.9 Hypertensive heart disease without heart failure; F32.9 Major depressive disorder, single episode, unspecified; E79.0 Hyperuricemia without signs of inflammatory arthritis and tophaceous disease; M19.90 Unspecified osteoarthritis, unspecified site; Z85.3 Personal history of malignant neoplasm of breast; Z92.3 Personal history of irradiation
CPT/HCPCS: 36415; 71046; 80053; 83735; 84100; 84484; 85025; 93005; J0690; J1650; J1940; J2270; J2405; J7050; J7121